=== PATIENT | male | born 1990 ===

== ENCOUNTER 2018-08-17 17:10 | Inpatient (IN) | payer SELFPAY ==
--- NOTE | 2018-08-17 17:24 | EDPHY ---
General Time Seen by Provider: 08/17/18 17:23 Narrative: CLINICAL IMPRESSION: Psychosis ASSESSMENT/PLAN: Patient is a 28-year-old male with a significant history of recent admission to [facility] after being found to be delusional, who presents after being placed on an M1 hold by police. Patient is afebrile and nontoxic-appearing, he is in no acute distress. Physical examination is unremarkable. CBC revealed no evidence of leukocytosis or anemia. His vital signs were reviewed and no findings to suggest bacterial illness. Metabolic panel with no metabolic abnormalities or acute kidney injury. Alcohol negative. Drug screen negative. There were no clinical findings to suggest intoxication, organic etiology, metabolic abnormality or other toxidrome. The patient was formally evaluated by behavioral health in the emergency department. He became very agitated while in the emergency department and required Zyprexa, Ativan and Haldol. On repeat examination he is much more calm. After formal evaluation, the patient was accepted to [address] [place] [address] Hunter for psychosis. The patient remained hemodynamically stable while in the emergency department and prior to transfer to [address] [place] [address]. DIFFERENTIAL DX: Psychosis including but not limited to chronic psychosis, medication noncompliance, medication side effect, depression and illicit drug use. ED COURSE: 1834: Discussed case with mental health Dayana. She had a long conversation with patient's brother whom is in [employer]. Per brother patient is very reliable, no history of drug use. He did have a recent episode where he was delusional under the impression that people were following him and ended up in [place] having no idea how he got there. He was admitted to [facility] at that time with improvement of his behavior and delusions after being placed on Risperdal. He has been without medications for a week and half. Family history of schizophrenia. 1914: Patient agitated, Ativan and Zyprexa ordered. Awaiting placement. CHIEF COMPLAINT: M1 hold by police HPI: Patient is a 28-year-old male with unknown psychiatric history who presents to the emergency department after detain by police and sent here on an M1 hold. Patient is very evasive in answering questions, when asked about his medical history he states "it is long" and will not elaborate. Patient denies any physical complaints at this time. He reports that he was allegedly arrested for not paying a bus fare prior to arrival. Patient ultimately discloses a recent admission to [facility] and states "I am not going back". He endorses that he was admitted there because he was "acting crazy". He states that he was placed on risperidone, has not continue it since his discharge from [facility]. He denies any suicidal ideation, homicidal ideation or history of suicide attempts in the past. PMH: Unknown psychiatric Family History: Noncontributory Social History: Denies any illicit drug use REVIEW OF SYSTEMS: All other systems negative Constitutional: No fever, no chills, appetite change. Eyes: No discharge, vision change ENT: No sore throat, congestion, ear pain. Cardiovascular: No chest pain, no palpitations. Respiratory: No cough, no shortness of breath. Gastrointestinal: No abdominal pain, no vomiting, diarrhea. Genitourinary: No hematuria, dysuria, flank pain, pelvic pain Musculoskeletal: No back pain, joint swelling, joint pain, myalgias. Skin: No rashes, color change. Neurological: No headache, dizziness, weakness. PHYSICAL EXAM: General Appearance: Laying in bed with his back to nh, refuses to turn over. He is well-developed, HENT: Normocephalic, atraumatic. Bilateral external ears are normal. Nares are clear, mucosa is pink. Oropharynx is clear, uvula is midline. Eyes: PERRLA, EOMI intact. Conjunctiva pink, no pallor or injection. Neck: Supple, nontender, no lymphadenopathy, no midline pain, FROM, no meningismus. Respiratory: There are no retractions, lungs are clear to auscultation. Cardiac: Regular rate and rhythm, no murmurs or gallops. Gastrointestinal: Abdomen is soft, nontender, bowel sounds normal, no masses/ hernia, no rigidity, guarding or focal peritoneal findings. Neurological: Alert and oriented x 3, CN 2-12 grossly intact, normal gait no ataxia, DTR's intact, normal sensation and strength Skin: Warm, dry, no rashes, no nodules on palpation. Musculoskeletal: Extremities are symmetrical, full range of motion, no tenderness, deformity, swelling, or erythema. Psychiatric: Patient is oriented X 3, there is no agitation. He is very labile , does not want to make any eye contact. MEDICAL DECISION MAKING: Patient was seen independently. Secondary supervising physician at time of evaluation was Dr. Ram. Diagnosis: Abnormal behavior. New, requires workup Summary: See Assessment and Plan for summary of ED visit Clinical lab tests: ordered / reviewed. Independent visualization of images, tracing, or specimens: No. Decision to obtain medical records or history from someone other than the patient: Yes, please report Review / Summarize previous medical records: None available Discussed patient with another provider: Yes, Dr. Ram Patient Progress: Stable, transfer to [address] [place] [address]. - Objective Vital Signs: Initial Vital Signs Temperature (C) 36.7 C 08/17/18 17:10 Heart Rate 60 08/17/18 17:10 Respiratory Rate 16 08/17/18 17:10 Blood Pressure 156/99 H 08/17/18 17:10 O2 Sat (%) 97 08/17/18 17:10 O2 Delivery Mode Room Air Allergies/Adverse Reactions: No Known Allergies Allergy (Unverified 08/17/18 17:48) Home Medications: Medication Instructions Recorded NK [No Known Home Meds] 08/17/18 Laboratory Results: Laboratory Results 08/17/18 17:24 08/17/18 17:24 08/17/18 08/17/18 08/17/18 17:24 17:24 17:24 WBC 8.13 10^3/uL 10^3/uL (3.80-9.50) RBC 5.46 10^6/uL 10^6/uL (4.40-6.38) Hgb 15.6 g/dL g/dL (13.7-17.5) Hct 47.2 % % (40.0-51.0) MCV 86.4 fL fL (81.5-99.8) MCH 28.6 pg pg (27.9-34.1) MCHC 33.1 g/dL g/dL (32.4-36.7) RDW 13.4 % % (11.5-15.2) Plt Count 270 10^3/uL 10^3/uL (150-400) MPV 11.1 fL fL (8.7-11.7) Neut % (Auto) 61.5 % % (39.3-74.2) Lymph % (Auto) 28.9 % % (15.0-45.0) Roosevelt % (Auto) 7.1 % % (4.5-13.0) Eos % (Auto) 1.2 % % (0.6-7.6) Baso % (Auto) 1.1 % % (0.3-1.7) Nucleat RBC Rel Count 0.0 % % (0.0-0.2) Absolute Neuts (auto) 4.99 10^3/uL 10^3/uL (1.70-6.50) Absolute Lymphs (auto) 2.35 10^3/uL 10^3/uL (1.00-3.00) Absolute Monos (auto) 0.58 10^3/uL 10^3/uL (0.30-0.80) Absolute Eos (auto) 0.10 10^3/uL 10^3/uL (0.03-0.40) Absolute Basos (auto) 0.09 10^3/uL 10^3/uL (0.02-0.10) Absolute Nucleated RBC 0.00 10^3/uL 10^3/uL (0-0.01) Immature Gran % 0.2 % % (0.0-1.1) Immature Gran # 0.02 10^3/uL 10^3/uL (0.00-0.10) Sodium 141 mEq/L mEq/L (135-145) Potassium 4.4 mEq/L mEq/L (3.5-5.2) Chloride 107 mEq/L mEq/L (97-110) Carbon Dioxide 23 mEq/l mEq/l (22-31) Anion Gap 11 mEq/L mEq/L (6-14) BUN 25 mg/dL H mg/dL (7-23) Creatinine 1.1 mg/dL mg/dL (0.7-1.3) Estimated GFR > 60 Glucose 96 mg/dL mg/dL (70-100) Calcium 9.6 mg/dL mg/dL (8.5-10.4) Urine Opiates Screen NEGATIVE (NEGATIVE) Urine Barbiturates NEGATIVE (NEGATIVE) Ur Phencyclidine Scrn NEGATIVE (NEGATIVE) Ur Amphetamine Screen NEGATIVE (NEGATIVE) U Benzodiazepines Scrn NEGATIVE (NEGATIVE) Urine Cocaine Screen NEGATIVE (NEGATIVE) U Marijuana (THC) Screen NEGATIVE (NEGATIVE) Ethyl Alcohol < 10 mg/dL mg/dL (0-10) Medications Given: Discontinued Medications Haloperidol Lactate (Haldol Injection) 10 mg IM EDNOW ONE Stop: 08/17/18 20:24 Last Admin: 08/17/18 20:38 Dose: 10 mg Lorazepam (Ativan) 2 mg PO EDNOW ONE Stop: 08/17/18 19:15 Last Admin: 08/17/18 19:20 Dose: 2 mg Olanzapine (Zyprexa Zydis) 10 mg PO EDNOW ONE Stop: 08/17/18 19:15 Last Admin: 08/17/18 19:20 Dose: 10 mg Departure - Departure Disposition: [facility] IP Clinical Impression: Psychosis Qualifiers: Psychosis type: unspecified psychosis type Qualified Code(s): F29 - Unspecified psychosis not due to a substance or known physiological condition Referrals: NONE *PRIMARY CARE P,. [Primary Care Provider] - As per Instructions
[2018-08-17 17:51] LABS: PLATELET COUNT 270 10^3/uL (150-400)
[2018-08-17] MEDS ORDERED: OLANZapine DISINTEGR 10 MG TAB PO ONE (19:14)
[2018-08-17] MEDS ORDERED: LORazepam 1 MG TAB PO ONE (19:14)
[2018-08-17] MEDS ORDERED: HALOPERIDOL LACT 5 MG/ML INJ IM ONE (20:23)
--- NOTE | 2018-08-17 20:38 | ASMTTCLDSP ---
TLC Discharge Disposition Disposition: Answers: Admit Disposition Notes: Notes: In consultation with [facility] ED physician, Leonides Ram MD and on-call psychiatrist, Jose Hunter MD, both concurred that pt appears to meet 27-65 criteria requiring psychiatric hospitalization as pt appears to be at risk of harm to self/others/gravely disabled due to a mental illness condition. Pt was read the Patient Rights and Responsibilities Statement on 08/17/18 original placed on chart, and was given photocopy of Rights. Pt refused to sign rights. Pt was given the prohibited belongings list while in the ED. Discharge Concerns/Recommendations: Notes: Pt admitted to [facility] at [facility] Was patient given the Answers: Yes Inpatient [facility] Prohibited Belongings List while in the ED? For inpatient Jose Hunter admission, the following psychiatrist agreed to accept patient for admission to [facility] ([facility]): Type of Hold: Answers: M1/72-hour Hold Hold initiated by: Answers: Other Notes: [facility] Clinician Date Signed: 08/17/2018 08:37 PM Electronically Signed By:Dayana Franco
--- NOTE | 2018-08-17 20:50 | PDCONSULT ---
Patient Services Coordinator Note: MEDICINE CONSULT H&P Chief Complaint: brought in under M1 hold by police History of Present Illness: 28yo M with recent inpatient stay at [facility] for delusional behavior is brought in under M1 hold by police. It is unclear to this conventional mortgage underwriter the events surrounding him being brought in. Per previous notes, he was recently at [facility] and started on risperidone. His delusions improved and he was discharge. He then reportedly stopped taking his risperidone. The mental health provider in the ED called the patient's brother who reports Drake is typically very reliable and does not use illicit substances. He did confirm the recent episode of delusions. He has apparently been out of his risperidone for over a week. In the ED, he was agitated and given ativan and zyprexa. Upon my evaluation, he is somnolent but easily arousable. He denies recent fevers, chills, dyspnea, cough, nausea, vomiting, diarrhea, urinary symptoms, rashes. Past Medical History: negative other than noted above Past Surgical History: denies Medications: none Allergies: none Social History: Reports living with his father. Denies alcohol, tobacco, illicits. Family History: + for schizophrenia ROS: A 10 point review of systems was negative other than noted in HPI. Vitals: Reviewed. Mildly hypertensive on arrival. Afebrile with normal heart rate. Physical Exam: Gen - no acute distress; HEENT - anicteric sclera, moist mucous membranes; Neck - no adenopathy; CV - rrr without m/r/g; Lungs - clear without wheezes; Abd - soft and nontender; Skin - no rashes or e/o IVDU; MSK - no edema in legs; Neuro - no focal deficits; Psych - calm Labs: Reviewed. Normal CBC and BMP. Negative Utox and alcohol level. Studies/Imaging: None. Assessment/Plan: 28yo M with recent inpatient psychiatric admission for delusions who is brought in under M1 hold for unclear reasons. #Decompensated psychiatric illness: M1 hold and being admitted to inpatient psychiatry. I suspect he has schizophrenia based on his prior presentation/ delusional thinking and family history. #Elevated BP: Suspect situational. Would not actively treat. Monitor in future. There are no other acute medical issues which would preclude him from inpatient psychiatry admission. Thank you for this consult. Please page the hospitalist service if any questions arise.
--- NOTE | 2018-08-17 20:57 | ASMTTLCEVL ---
[facility] Evaluation - Basic Information Evaluation Start Date and 08/17/2018 06:00 PM Time Hospital Status Answers: M1 Hold 72-hr M1 Hold Start Date 08/17/2018 05:00 PM and Time Patient statement Notes: "Im not going back to a Mental Health facility. I dont care what they say. When pt. was asked about last hospitalization pt did say his father had wanted him to go to the hospital before since he was acting crazy. Narrative Notes: Pt is a 28 year old male with unknown psychiatric history who presented to the [facility] ED on a M1 hold after [facility]. Per ED report: Pt was evasive in answering questions, when asked about his history he stated, it is long and will not elaborate. Pt denied any physical complaints at time of Physician evaluation. Pt had reported to ED staff he was arrested for not paying a bus fare prior to arrival. Pt ultimately discloses a recent admission to [facility] and states I am not going back. Pt had reported he was admitted to because he was acting crazy. Pt was placed on Risperidone, has not continued with his medications once he was discharged from . Pt denied any SI or HI or past hx of suicide attempts. Pt presented as alert and orientated, with no agitation. Pt presented as labile avoiding eye contact. Pt denied any illicit drug use. Pt was placed on a M1 hold by clinician at the [facility]. Per M1 hold pt refused to answer any questions regarding suicidality/homicidally. Information by clinician was provided by family suggest dx of psychotic disorder. Currently unmediated. Presenting as disorganized and passively agitated. Prior hospitalization about 1 month ago. Per initial evaluation report from [facility]. attempted to interview at the request of booking deputies. Mr. Peres was quiet and passively uncooperative refusing to answer basic questions about past mental health hx and diagnosis. He refused to answer questions regarding suicidality, homicidally, medical hx, family/social hx and plans for release. Per Mr Montero family: About 1 year ago strange behaviors began appearing. They reported delusions around members of his sikhism following him around. His focus of last has been delusions around the government following him around. He had a prior hospitalization about 1 month ago. He was placed on a M1 hold after an arrest for a non-violent offense. At this time he began taking an unknown psychotropic medication and his symptoms improved. About a week ago he stopped taking the medications and the psychotic/delusional symptoms reappeared. Mr. Peres presented with rigid posture with very poor eye-contact. When he did choose to make eye-contact he had an intense stare. He was very distrustful of this interviewer and refused to give any answers of substance. His mood was passively agitated and his affect was flat. His judgment and insight appeared compromised; he seemed to have very little awareness around his mental health status and the impact his mental health issues are having on his ability to function. TLC spoke with brother. Pt did not answer questions other than initially saying hum or nah but would not elaborate. Pt did however state I dont want to go anywhere. On occasion pt would respond answering I dont care. Majority of history was obtained from pt.s brother, Roberto Wilder [phone]. Brother reported in early Jul. is when he started experiencing significant mental health concerns noted by extreme paranoia. Brother reported in early Jul. he ended up in [place], [place] arrested for a misdemeanor and released but sent to a local hospital for a MH evaluation and ending up at [facility] for inpt MH treatment as pt. was exhibiting extreme paranoia, feeling people from the sikhism and the government were following him. Brother reported pt has no hx of substance abuse. 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 Pts social life was focused on the sikhism and per brother pt. had a harder time with developing relationships with others because of his strict beliefs and intolerance of others behaviors. Brother also reported there has been tension at home with fathers due to pt.s behaviors. Diagnosis History Notes: Prior psychotic episode resulting in an inpt. admission on Jul. Prior suicide attempts Notes: No prior report of any suicide attempts. Prior hospitalizations Notes: Prior hospitalization in Jul. Treatment Responses Notes: Pt unable to report. Per brother pt. did well while he was on meds post [facility] Hospitalization in Jul. History of violence Notes: No hx of violence reported either as a victim or harm to others. Therapist: None Psychiatrist: No current Psychiatrist. Pt only followed up for one appointment after his hospital stay. Medications (name, dosage, route, freq uency) Notes: Pt stopped taking his recommended medications about 1.5 weeks ago. Per brother pt. had been doing well when he was taking his medications. Allergies/Reaction Notes: No known allergies. Sleep Notes: Brother reported pt has been staying up a lot at night and not sleeping either during the day. Pt refused to report on sleeping pattern. Appetite Notes: Pt unable to report. Medical/Surgical history Notes: Pt unable to report. Substance use history (frequency, intensity, his tory, duration) Notes: Brother stated pt has no known history of substance use or drinking since he was 20 and changed his life after finding God. Family composition Notes: Pt is the middle child, with an older and younger brother. His parents when pt. was about 13 years old. Pts father remarried a few years ago. Need for family Answers: Yes participation in patient's care Family psychiatric/substance abuse history Notes: It was reported by brother that pt.s paternal Grandfather at one time was diagnosed with schizophrenia. Developmental history Notes: Pts parents when he was 13 years old. He and his 2 siblings lived with their mother after the divorce. Pts biological father however remained involved. There was no reported hx of abuse provided. There also per brother was no reported hx of a childhood dx such as ADD or ADHD. No hx of concussions, head injuries or LOC was reported. Abuse concerns Answers: None Marital status/children Notes: Pt is single, never with no children. Living situation Notes: Pt has been living with his father and fathers . Sexual history/orientation Notes: Pt is not in a relationship. Peer support/family strengths Notes: Brother stated pt. does not appear to have any close relationships because of his behavioral expectations of others. Education level/history Notes: Pt graduated from high school. Brother indicated pt. did not apply himself academically in school but did finish high school as an average student. 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 Due to his behavior related to his mental illness brother indicated he lost his job in Jul and the sikhism has asked pt. not return to the building unless he is accompanied by a family member. Notes: No involvement. Legal Notes: Pt was arrested for a misdemeanor in [place], [place] in Jul resulting in a MH evaluation. Pt was also arrested earlier today for failing to pay a bus fare. Jew/Spiritual Notes: Pt was a member and worked as a portfolio lead at a [employer]. Brother reported pt. lead a very strict moral life since he found God at age 20. 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 Brother also reported pt. likes playing basketball, reading the bible and playing the guitar. Collateral Notes: Collateral inform. was obtained from pt.'s brother included in assessment above. Patient's strengths Answers: Artistic/Creative/Musical (Please select at least TWO strengths): Athletic Supportive/Compassionate TLC Evaluation - Mental Status Exam Appearance: Answers: Appropriate Eye Contact: Answers: Absent Avoiding Mood: Answers: Labile Affect: Answers: Anxious Fearful Guarded Nervous Suspicious Behavior: Answers: Uncooperative Fearful Guarded Suspicious Speech: Answers: Coherent Soft Thought Process: Answers: Disorganized Distracted Paranoid Insight: Answers: Poor Judgement: Answers: Poor Manic Signs/Symptoms Answers: Distractibility Impulsivity Depression Answers: Diminished Interest Signs/Symptoms: Sad Mood Withdrawn Anxiety Signs/Symptoms Answers: Generalized Anxiety Delusions: Answers: Paranoid Ideation Jew/Spiritual Current Stage of Change Answers: Precontemplation Pt reported to have Answers: No suicidal/self-injuring ideation/behavior? Pt reported to be making Answers: No suicidal/self-injuring threats? Pt reported to have Answers: No aggression/assault ideation/behavior? Pt reported to be making Answers: No aggression/assault threats? Pt exhibits inability to Answers: Yes care for self/grave disability? Ideation has Answers: Yes delusional/hallucinatory content? History of Answers: No suicidal/self-injuring ideation, behavior, or threats? History of Answers: No aggressive/assaultive ideation, behavior, or threats? History of serious Answers: No physical harm to self/others while in treatment setting? TLC Evaluation - Suicide/Homicide Risk Suicide Risk Factors: Answers: Agitation Anxiety/Panic, Severe Global Insomnia Impulsivity Psychotic Disorder None Current Suicidal Answers: No Ideation? Current Suicidal Ideation Answers: No in the Past 48 Hours? Current Suicidal Ideation Answers: No in the Past Month? Suicide Internal Answers: Other Notes: Pt denied SI Protective Factors: Suicide External Answers: Other Protective Factors: None TLC Evaluation - Wrap-up BDI Total Score: Pt refused BSS Total Score: Pt refused AXIS I Diagnosis (include DSM-V and ICD-10 codes), must also be entered in [employer], which is the source of truth. Notes: Unspecified Schizophrenia Spectrum and Other Psychotic Disorder 298.9 (F29) In consultation with [facility] ED physician, Leonides Ram MD and on-call psychiatrist, Jose Hunter MD, both concurred that pt appears to meet 27-65 criteria requiring psychiatric hospitalization as pt appears to be at risk of harm to self/others/gravely disabled due to a mental illness condition. Pt was read the Patient Rights and Responsibilities Statement on 08/17/18 original placed on chart, and was given photocopy of Rights. Pt refused to sign rights. Pt was given the 3N prohibited belongings list while in the ED. Evaluation End Date and 08/17/2018 08:50 PM Time (HH:MM): Date Signed: 08/17/2018 08:57 PM Electronically Signed By:Dayana Franco
[2018-08-17] MEDS ORDERED: NICOTINE POLACRILEX 2 MG GUM B PRN (23:03)
[2018-08-17] MEDS ORDERED: LORazepam 0.5 MG TAB PO PRN (23:03)
[2018-08-17] MEDS ORDERED: MAG HYDROX/AL HYDROX/SIMETH 30 ML UDCUP PO PRN (23:03)
[2018-08-17] MEDS ORDERED: OLANZapine DISINTEGR 10 MG TAB PO PRN (23:03)
[2018-08-17] MEDS ORDERED: MAGNESIUM HYDROXIDE 30 ML UDCUP PO PRN (23:03)
[2018-08-17] MEDS ORDERED: ACETAMINOPHEN 325 MG TAB PO PRN (23:03)
[2018-08-17] MEDS ORDERED: LORazepam 1 MG TAB PO PRN (23:05)
--- NOTE | 2018-08-18 15:59 | ASMTCMCOM ---
CM Note CM Note Notes: CC unable to meet with pt. due to pt. sleeping throughout the day. Staff report pt. sleeping over 16 hours today, eating lunch, and having no medications to take. CC will meet with pt tomorrow morning to complete MTP and request pt. sign [employer] form to assist with gaining insurance. Date Signed: 08/18/2018 03:59 PM Electronically Signed By:Patience Rosenthal
--- NOTE | 2018-08-18 16:30 | PDMN ---
Medical Necessity Medical necessity: Pt meets inpt criteria per MD order and [facility] B-014, Schizophrenia Spectrum Disorders, Adult: Inpatient Care, 6 days. 28 y/o presented to ED on M1 hold, admitted w/unspecified schizophrenia spectrum and other psychotic disorder, requires psychiatric hospitalization as pt appears to be at risk of harm to self/others/gravely disabled due to mental illness.
--- NOTE | 2018-08-18 18:07 | BAPA ---
[f rep st] ADMISSION PSYCHIATRIC ASSESSMENT DATE OF SERVICE: 08/18/2018 CHIEF COMPLAINT: "I am not going back to a mental health facility, I don't care what they say." HISTORY OF PRESENT ILLNESS: Patient is a 28-year-old unmarried, man who presented to the [facility] ED on an M1 hold after he was released from shelter. According to the mental health evaluation from the shelter, patient was riding a bus in [place] and refused to pay his fare. [facility] was contacted. He was taken to shelter. At the [facility], he was evaluated by a sr. social media & mobile manager who complete d his M1 hold, which states "Mr. Peres refused to answer any questions regarding suicidality/homic idality. Collateral information obtained from family suggested diagnosis of psychotic disorder, curr ently unmedicated, presenting as disorganized and passively agitated. One prior mental health hospit alization about 1 month ago." Collateral information that was obtained from family members, and while patient was in the emergency department, indicates that about 1 year ago the patient started exhibiting strange behaviors. Family members report delusions about members of his samaritan following him around. Patient was also focused on the government monitoring him. Patient admitted in the emergency department that he had been adm itted to [facility] about 1 month ago. While he was at [facility], he was taking Risperd al. However, after he was discharged from the hospital, patient stopped taking his medications and h is paranoid delusions reappeared. The [facility] carbonator in the ED, spoke with the patient's brother, Kaiser kaur Roberto states that the patient has been extremely paranoid. He says in early July, the debo leon went to [place], [place] and was arrested for a misdemeanor, but then was released and sent to a local emergency room where he was transferred to inpatient at [facility] for mental health t reatment. While patient was in the ED, he was very guarded, refused to answer most questions, very poor eye con tact. When he was told that he was going to be admitted to a psychiatric facility. Patient became e xtremely agitated. He required IM Haldol. Since the patient has been admitted to the inpatient [facility] unit on , he has been very sedated. He has slept most of the day. He woke up o nly briefly to eat lunch and then went back to sleep. When this MD tried to talk to the patient, he was very difficult to arouse. He could not stay awake and kept falling back asleep. He has not rece ived any further medications since his admission. PAST PSYCHIATRIC HISTORY: The patient provided little collateral information about his psychiatric h istory. Most of the information that this MD has is a result of information provided by the patient' s brother, Roberto Peres, during his interview with the [facility] carbonator. Brother states that the pa marvin has had only 1 prior psychiatric hospitalization that was at [facility] in July. He was there for less than a week. Brother reports that the patient was taking Risperdal, but d oes not know the dose. Brother states that once patient was discharged from the hospital, he stopped taking his medication. He did have 1 followup appointment with an outpatient psychiatrist, but brot her does not know where that was or who the psychiatrist was. Brother states that he has had no othe r contact with mental health providers. Brother states that he is not aware of any psychotic episode s prior to a year ago, when the patient started becoming increasingly paranoid and having bizarre tho ughts about the government and samaritan members following him around. Mother states that the patient b ecame very judaism around the age of 20 or 21 years old. According to the brother, the patient "fo und God" and became heavily involved in a local [employer]. 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 In July, the samaritan told him he lost his job and his fernando zaldivar asked the patient not to return to the building unless he was accompanied by a family member. There were no details about what led to the patient losing his job. The patient has no prior suicide attempts and has never taken medication before being at [facility]. ALLERGIES: Patient has no known drug allergies. CURRENT MEDICATIONS: The patient is not currently taking any medications. The last time he had any meds was when he was inpatient at [facility] in July of 2018. LABORATORY DATA: White cell count was 8.13, hemoglobin 15.6, hematocrit 47.2, platelet count 270. S odium 141, potassium 4.4, chloride 107, BUN 25, creatinine 1.1, glucose 96, calcium 9.6. Urine drug screen was negative for all drugs of abuse. PAST MEDICAL HISTORY: Patient does not report any chronic medical conditions. No prior surgeries. SOCIAL HISTORY: Brother states that the patient's parents were when the patient was 13 year s old. He has 2 siblings. They lived with their mother after the divorce. The patient is currently living with his father and his father's new . The patient graduated from high school, has no fu rther education after high school. 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 The brother states the patient lost his job in July because of his mental illness. Brother states that the patient's social life centered on his samaritan. 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 FAMILY HISTORY: There is no reported family history of mental illness or substance use. SUBSTANCE USE HISTORY: Patient denies using any drugs of abuse. Brother states that the patient is very judaism and does not believe in using drugs or alcohol. As far as the brother knows, the salo ent has never had a problem with drugs or with alcohol. TRAUMA HISTORY: The brother denies that the patient has ever experienced any emotional, physical, or sexual abuse. LEGAL HISTORY: The patient was picked up by [employer] [employer] for refusing to pay a bus fare. He was relea sed from shelter on a mental health hold. There is no report of any other legal issues. The patient is lying in bed sleeping. He is wearing a hospital gown and scrub bottoms. He is very difficult to ar ouse. He is sedated and sluggish. He does not make any eye contact and his speech rate is slow, vol ume is low. He mostly mumbles. His intellectual function, based upon the brother's report, his fund of knowledge and educational history would indicate that he has average or slightly below average in tellectual function. Since arriving on the unit, he has denied feeling sad, helpless, hopeless, wort hless, and anxious. He has denied any auditory or visual hallucinations. He denies feeling paranoid . No ideas of reference or bizarre thoughts, although he did present with symptoms of paranoid delus ions and erratic and agitated behavior. He has not exhibited any unsafe or aggressive behaviors whil e on the inpatient unit. He does not show any signs or symptoms of olga. He does not have racing t houghts, pressured speech, grandiose delusions, or elevated and elated mood. His thought process, ba sed upon his evaluation in the emergency department, was disorganized, guarded, and defensive. His i nsight and judgment are both impaired as evidenced by the fact that he stopped taking his psychiatric medications, did not adhere to his followup plan. IMPRESSION: 1. Psychotic disorder, unspecified. 2. Schizophrenia, paranoid type by history. Brother reports this was the patient's diagnosis when clemente escoto was at [facility] last month. 3. Lack of social support, nonadherence to treatment, noncompliance with medications, lost his job i n July of 2018. PLAN: 1. Admit patient to the inpatient behavioral health services unit on [address] [place] [address] on an M1 hold. 2. Monitor closely for safety. The patient is currently not exhibiting any signs of unsafe behavior . He is acting appropriately, although he was agitated and combative in the ED and was administered IM medications for agitation. The patient has not exhibited any signs of aggressive behavior here on the inpatient unit. 3. Continue to monitor and observe the patient. He does seem much calmer, and less agitated since r eceiving p.o. Zyprexa, Ativan, and IM Haldol in the emergency department. He has not received any nm dications since he has been on [address] [place] [address]. He has been asleep. 4. The patient did take risperidone while he was at [facility], but his brother does not know the dose he was on. Brother says that the patient was more stable and less paranoid after t aking the medication. MD will order Risperdal M tab 0.5 mg p.o. at bedtime. MD has also requested m edical records from [facility]. So far, all the information that we have has been pro vided by the patient's brother, Roberto. 5. Estimated length of stay is 3 to 5 days. The patient has been living with his father and with hi s father's new . It is unclear whether or not the patient will be able to return to their house. transitions rn care coordinator has attempted to contact the family in order to start working on the patient's dis position and his aftercare plan. It is unclear whether or not the patient has been enrolled for [facility] Medicaid, but this would open up opportunities for him to be seen at [facility] or a similar community mental health center where he could get more comprehensive services. /[id number]/MODL
[2018-08-18] MEDS: RISPERIDONE ODT 0.5 MG TAB SL SCH (20:27)
--- NOTE | 2018-08-19 07:35 | ASMTBHMTP ---
Master Treatment Plan Master Treatment Plan Answers: Mood Instability with for: Psychosis Date: 08/17/2018 Diagnosis on Admission: Unspecified Schizophrenia Spectrum and Other Psychotic Disorder 298.9 (F29) Expected length of stay: 3-5 days Reason for admission: Notes: Per Report: Pt is a 28 year old male with unknown psychiatric history who presented to the [facility] ED on a M1 hold after pt was released from [facility]. Per ED report: Pt was evasive in answering questions, when asked about his history he stated, it is long and will not elaborate. Pt denied any physical complaints at time of Physician evaluation. Pt had reported to ED staff he was arrested for not paying a bus fare prior to arrival. Pt ultimately discloses a recent admission to [facility] and states I am not going back. Pt had reported he was admitted to because he was acting crazy. Pt was placed on Risperidone, has not continued with his medications once he was discharged from . Pt denied any SI or HI or past hx of suicide attempts. Pt presented as alert and orientated, with no agitation. Pt presented as labile avoiding eye contact. Pt denied any illicit drug use. Pt was placed on a M1 hold by clinician at the [facility]. Per M1 hold pt refused to answer any questions regarding suicidality/homicidally. Information by clinician was provided by family suggest dx of psychotic disorder. Currently unmediated. Presenting as disorganized and passively agitated. Prior hospitalization about 1 month ago. Per initial evaluation report from intermediate. attempted to interview at the request of booking deputies. Mr. Peres was quiet and passively uncooperative refusing to answer basic questions about past mental health hx and diagnosis. He refused to answer questions regarding suicidality, homicidally, medical hx, family/social hx and plans for release. Per Mr Montero family: About 1 year ago strange behaviors began appearing. They reported delusions around members of his zoroastrianism following him around. His focus of last has been delusions around the government following him around. He had a prior hospitalization about 1 month ago. He was placed on a M1 hold after an arrest for a non-violent offense. At this time he began taking an unknown psychotropic medication and his symptoms improved. About a week ago he stopped taking the medications and the psychotic/delusional symptoms reappeared. Mr. Peres presented with rigid posture with very poor eye-contact. When he did choose to make eye-contact he had an intense stare. He was very distrustful of this interviewer and refused to give any answers of substance. His mood was passively agitated and his affect was flat. His judgment and insight appeared compromised; he seemed to have very little awareness around his mental health status and the impact his mental health issues are having on his ability to function. TLC spoke with brother. Pt did not answer questions other than initially saying hum or nah but would not elaborate. Pt did however state I dont want to go anywhere. On occasion pt would respond answering I dont care. Majority of history was obtained from pt.s brother, Roberto Wilder [phone]. Brother reported in early Jul. is when he started experiencing significant mental health concerns noted by extreme paranoia. Brother reported in early Jul. he ended up in [place], [place] arrested for a misdemeanor and released but sent to a local hospital for a MH evaluation and ending up at [facility] for inpt MH treatment as pt. was exhibiting extreme paranoia, feeling people from the zoroastrianism and the government were following him. Brother reported pt has no hx of substance abuse. 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 Pts social life was focused on the zoroastrianism and per brother pt. had a harder time with developing relationships with others because of his strict beliefs and intolerance of others behaviors. Brother also reported there has been tension at home with fathers due to pt.s behaviors. Patient's stated presenting problems: Notes: " I got arrested by [employer] went to [facility] and then they brought me here." Patient's goals for treatment: Notes: "to get out" Patient's strengths: Notes: None Identify supports outside of hospital: Notes: Family and Friends Discharge criteria: Notes: Patient will demonstrate a stable mood by discharge.* Initial disposition plan/considerations: Notes: Return home to my father house in [place]. Master Treatment Plan Required Signatures Psychiatrist signature: Answers: Psychiatrist: RN on-shift signature: Answers: RN: Patient signature: Answers: Patient: Date Signed: 08/19/2018 07:34 AM Electronically Signed By:Jerson Mauricio
--- NOTE | 2018-08-19 08:24 | SOAPPROG ---
SOAP Progress Note Assessment/Plan: Assessment: Unspecified Psychosis. No improvement noted, currently refusing medications ( see subjective/objective note). Patient is not safe to discharge at this time as patient continues to exhibit signs of psychosis, and express psychosis symptoms. Patient requires continued inpatient care because of current psychosis, and requires inpatient level of care to stabilize to no longer be gravely disabled due to mental illness. Patient could benefit from continued inpatient hospitalization for crisis stabilization, safety, and medication evaluation. Plan: 1. Psychotropic medications: After reviewing options, risks, and benefits patient agrees to continue current medications. No other medication changes at this time as more time is needed to determine ongoing tolerability and efficacy. Plan is to continue to observe patient for response and side effects from medications, and ongoing monitoring and evaluation. 2. Review with patient informed consent and recommendations for psychotropic medication treatment listed below 3. Labs: A1c, lipid panel, liver function 4. Therapy: continue milieu and group therapy 5. Further investigation including gathering information from patients relatives and review of past case records to inform treatment plan. 6. Safety/Wellness plan and follow-up outpatient appointments to be established prior to discharge. Next steps are for patient to meet with animal care supervisor to plan a safe discharge plan and establish outpatient services for ongoing treatment. 7. Confer with inpatient treatment team regarding treatment plan. 8. Psychosocial stressors addressed through case resolution specialist 9. Legal status: M1 10. Consider discharge this week if patient is in stable condition, safe, and has a safe discharge plan. PSYCHOTROPIC MEDICATION TREATMENT INFORMED CONSENT and RECOMMENDATIONS: Review nature of condition, diagnosis, and prognosis. Review nature and purpose of psychotropic medication treatment. Review type of psychotropic medications being ordered. Review risk and benefits of psychotropic medication treatment. Review probable length of time patient will need to take medications. Review risk and benefits of not undergoing psychotropic medication treatment. Review alternative treatments to psychotropic medications. Review psychotropic medications contraindications, drug-drug interactions, side effects, and importance of reporting any side effects to a psychiatric provider or nurse during inpatient hospitalization, and upon discharge to patients psychiatric outpatient provider, primary care provider, or other health date night caregiver. Review importance of asking a nurse, psychiatric provider, or primary care provider any questions or problems concerning the psychotropic medications. Verify patient understands the information that has been provided, and understands, accepts, and agrees to psychotropic medications. Review patients safety plan and importance of patient to report to staff while hospitalized if patient is ever a danger to self/others, or unable to care for self, and upon discharge, the importance for patient to contact [facility] or [facility], or go to the nearest emergency room, if patient is ever a danger to self/others, or unable to care for self. Recommend that upon discharge patient establish medication management treatment with a psychiatric provider, establishes routine therapy appointments, and follow-up with primary care provider. Verify patient understands and agrees to these recommendations. 08/19/18 08:25 Subjective: Following up with patient for evaluation of psychosis and safety. Patient reports, "I am doing fine, and don't need to be here. Was arrested, and I am not going back to a mental health facility. I am here because I didn't have the right change to ride the bus. I am not going to take medications and I am not going to go to groups." Patient expresses the following psychiatric symptoms none. Patient reports he plans to return to his parents home in [place], [place] after discharge. Objective: Vital Signs Temp Pulse Resp BP Pulse Ox 36.6 C 63 16 117/68 97 08/19/18 06:00 08/19/18 06:00 08/19/18 06:00 08/19/18 06:00 08/19/18 06:00 08/18/18 08/19/18 08/20/18 05:59 05:59 05:59 Intake Total 1000 Balance 1000 NURSING REPORT: Consulted with nursing for update on patients progress in treatment. Nurses report patient is not engaged in treatment, is not attending groups, slept 8 hours, expresses the following psychiatric symptoms: anxiety, exhibits the following psychiatric symptoms: anxious; is eating all meals, is not agreeable to medications, and denies SI/HI, denies AH, denies VH, and denies delusions. MD REPORT FROM WEEKEND: admit d/t psychotic episode; admitted to [facility] 07/2018. Stopped Risperdal at DC and no f/u. Patient received IM Haldol in ED on Sat, started Risperdal 0.5 mg HS on Sun. Patient slept most of the day on Sunday. MSE: The patient is a well-nourished male looking stated chronological age. Attire is appropriate dress is casual. Grooming status is appropriate. Ambulation is independent. Gait is normal and coordinated. Posture is normal. Eye contact is appropriate. Motor activity is appropriate with purposeful, organized, coordinated movements; with no involuntary movements. Attitude is cooperative; appears paranoid and suspicious. Patient appears attentive and relates well to this interviewer. Language production is spontaneous. Rate is hesitant. Latency of response is prolonged. Articulation is clear. Patient reports mood as okay with flat, constricted, and inappropriate affect. Patients thought process is fairly linear and logical. Patient does not report suicidal/homicidal thoughts, ideas, or plans. Patient denies auditory, visual hallucinations. Patient denies delusions. Patient does not appear to be attending to internal stimuli. Patients attention and concentration are poor. Patient is oriented to person, place, and time. Patients insight is poor. Patients judgment is poor. - Time Spent With Patient Time Spent With Patient: 15 minutes, met with patient individually. - Pending Discharge Pending Discharge Within 24 Hours: No Pending Discharge Within 48 Hours: No ICD10 Worksheet Patient Problems: Problems Problem Status Onset Psychosis Acute
[2018-08-19] MEDS: RISPERIDONE ODT 0.5 MG TAB SL SCH (20:21)
--- NOTE | 2018-08-20 10:58 | SOAPPROG ---
SOAP Progress Note Assessment/Plan: Assessment: Unspecified Psychosis. R/O Schizophrenia. R/O Schizoaffective Disorder, Bipolar Type. No improvement noted; patient has refused medications since admission; patient reports now agreeable to medications (see subjective/ objective note). Patient is not safe to discharge at this time as patient continues to exhibit signs of psychosis, and express psychosis symptoms. Patient requires continued inpatient care because of current psychosis, and requires inpatient level of care to stabilize to no longer be gravely disabled due to mental illness. Patient could benefit from continued inpatient hospitalization for crisis stabilization, safety, and medication evaluation. Plan: 1. Psychotropic medications: After reviewing options, risks, and benefits patient agrees to being trial of Risperdal M-tab 1 mg po QHS. No other medication changes at this time as more time is needed to determine ongoing tolerability and efficacy. Plan is to continue to observe patient for response and side effects from medications, and ongoing monitoring and evaluation. 2. Review with patient informed consent and recommendations for psychotropic medication treatment listed below 3. Labs: no additional labs at this time 4. Therapy: continue milieu and group therapy 5. Further investigation including gathering information from patients relatives and review of past case records to inform treatment plan. 6. Safety/Wellness plan and follow-up outpatient appointments to be established prior to discharge. Next steps are for patient to meet with adult care provider to plan a safe discharge plan and establish outpatient services for ongoing treatment. 7. Confer with inpatient treatment team regarding treatment plan. 8. Psychosocial stressors addressed through correctional case records supervisor 9. Legal status: M1 to be placed on [facility] 10. Consider discharge this week if patient is in stable condition, safe, and has a safe discharge plan. PSYCHOTROPIC MEDICATION TREATMENT INFORMED CONSENT and RECOMMENDATIONS: Review nature of condition, diagnosis, and prognosis. Review nature and purpose of psychotropic medication treatment. Review type of psychotropic medications being ordered. Review risk and benefits of psychotropic medication treatment. Review probable length of time patient will need to take medications. Review risk and benefits of not undergoing psychotropic medication treatment. Review alternative treatments to psychotropic medications. Review psychotropic medications contraindications, drug-drug interactions, side effects, and importance of reporting any side effects to a psychiatric provider or nurse during inpatient hospitalization, and upon discharge to patients psychiatric outpatient provider, primary care provider, or other health patient care provider. Review importance of asking a nurse, psychiatric provider, or primary care provider any questions or problems concerning the psychotropic medications. Verify patient understands the information that has been provided, and understands, accepts, and agrees to psychotropic medications. Review patients safety plan and importance of patient to report to staff while hospitalized if patient is ever a danger to self/others, or unable to care for self, and upon discharge, the importance for patient to contact [facility] or [facility], or go to the nearest emergency room, if patient is ever a danger to self/others, or unable to care for self. Recommend that upon discharge patient establish medication management treatment with a psychiatric provider, establishes routine therapy appointments, and follow-up with primary care provider. Verify patient understands and agrees to these recommendations. 08/20/18 10:58 Subjective: Following up with patient for evaluation of psychosis and safety. Patient reports, "I am doing okay, just want to leave here." Patient expresses the following psychiatric symptoms anxious and irritable. Patient agrees to begin trial of Risperdal M-tab 1 mg QHS. Patient denies AH, expresses no sxs of psychosis. Patient reports he plans to return to his parents home in [place], [place] after discharge. Objective: Vital Signs Temp Pulse Resp BP Pulse Ox 36.7 C 65 14 180/79 H 98 08/20/18 06:00 08/20/18 06:00 08/20/18 06:00 08/20/18 06:00 08/20/18 06:00 NURSING REPORT: Consulted with nursing for update on patients progress in treatment. Nurses report patient is not engaged in treatment, is not attending groups, slept 3 hours, expresses the following psychiatric symptoms: anxiety, exhibits the following psychiatric symptoms: anxious, irritable, up most the night, hyperactive, doing push-ups, and speaking to his reflection in glass; withdrawn from social interactions; is eating all meals, is agreeable to medications, and denies SI/HI, denies AH, denies VH, and denies delusions. MD REPORT FROM WEEKEND: admit d/t psychotic episode; admitted to [facility] 07/2018. Stopped Risperdal at DC and no f/u. Patient received IM Haldol in ED on Sat, started Risperdal 0.5 mg HS on Sun. Patient slept most of the day on Sunday. MSE: The patient is a well-nourished male looking stated chronological age. Attire is appropriate dress is casual. Grooming status is appropriate. Ambulation is independent. Gait is normal and coordinated. Posture is normal. Eye contact is inappropriate and staring. Motor activity is appropriate with purposeful, organized, coordinated movements; with no involuntary movements. Attitude is cooperative; appears paranoid and suspicious. Patient appears attentive and relates well to this interviewer. Language production is spontaneous. Rate is hesitant. Latency of response is prolonged. Articulation is clear. Patient reports mood as okay with flat, constricted, and inappropriate affect. Patients thought process is fairly linear and logical. Patient does not report suicidal/homicidal thoughts, ideas, or plans. Patient denies auditory, visual hallucinations. Patient denies delusions. Patient does not appear to be attending to internal stimuli. Patients attention and concentration are poor. Patient is oriented to person, place, and time. Patients insight is poor. Patients judgment is poor. - Time Spent With Patient Time Spent With Patient: 15 minutes, met with patient individually. - Pending Discharge Pending Discharge Within 24 Hours: No Pending Discharge Within 48 Hours: No ICD10 Worksheet Patient Problems: Problems Problem Status Onset Psychosis Acute
[2018-08-20] MEDS ORDERED: LORazepam 1 MG TAB PO PRN (11:01)
[2018-08-20] MEDS ORDERED: RISPERIDONE ODT 0.5 MG TAB SL SCH (11:02)
--- NOTE | 2018-08-20 13:30 | ASMTCMCOM ---
CM Note CM Note Notes: Client is unwilling to sign POOL for [facility] for any follow up care. Additionally, CC had client sign ppw for Medicaid and submitted it to [employer], etc. Client appears paranoid at times, mostly isolating to his room while on the unit. Date Signed: 08/20/2018 01:29 PM Electronically Signed By:Jerson Mauricio
--- NOTE | 2018-08-21 06:20 | SOAPPROG ---
SOAP Progress Note Assessment/Plan: Assessment: Unspecified Psychosis. R/O Schizophrenia. R/O Schizoaffective Disorder, Bipolar Type. Slight improvement noted; patient agreeable to medications (see subjective/objective note). Patient is not safe to discharge at this time as patient continues to exhibit signs of psychosis, and express psychosis symptoms. Patient requires continued inpatient care because of current psychosis, and requires inpatient level of care to stabilize to no longer be gravely disabled due to mental illness. Patient could benefit from continued inpatient hospitalization for crisis stabilization, safety, and medication evaluation. Plan: 1. Psychotropic medications: After reviewing options, risks, and benefits patient agrees to Risperdal M-tab 2 mg po QHS. No other medication changes at this time as more time is needed to determine ongoing tolerability and efficacy. Plan is to continue to observe patient for response and side effects from medications, and ongoing monitoring and evaluation. 2. Review with patient informed consent and recommendations for psychotropic medication treatment listed below 3. Labs: no additional labs at this time 4. Therapy: continue milieu and group therapy 5. Further investigation including gathering information from patients relatives and review of past case records to inform treatment plan. 6. Safety/Wellness plan and follow-up outpatient appointments to be established prior to discharge. Next steps are for patient to meet with adult care provider to plan a safe discharge plan and establish outpatient services for ongoing treatment. 7. Confer with inpatient treatment team regarding treatment plan. 8. Psychosocial stressors addressed through case packer and sealer 9. Legal status: [facility] 10. Consider discharge this week if patient is in stable condition, safe, and has a safe discharge plan. PSYCHOTROPIC MEDICATION TREATMENT INFORMED CONSENT and RECOMMENDATIONS: Review nature of condition, diagnosis, and prognosis. Review nature and purpose of psychotropic medication treatment. Review type of psychotropic medications being ordered. Review risk and benefits of psychotropic medication treatment. Review probable length of time patient will need to take medications. Review risk and benefits of not undergoing psychotropic medication treatment. Review alternative treatments to psychotropic medications. Review psychotropic medications contraindications, drug-drug interactions, side effects, and importance of reporting any side effects to a psychiatric provider or nurse during inpatient hospitalization, and upon discharge to patients psychiatric outpatient provider, primary care provider, or other health caregivers non medical. Review importance of asking a nurse, psychiatric provider, or primary care provider any questions or problems concerning the psychotropic medications. Verify patient understands the information that has been provided, and understands, accepts, and agrees to psychotropic medications. Review patients safety plan and importance of patient to report to staff while hospitalized if patient is ever a danger to self/others, or unable to care for self, and upon discharge, the importance for patient to contact [facility] or [facility], or go to the nearest emergency room, if patient is ever a danger to self/others, or unable to care for self. Recommend that upon discharge patient establish medication management treatment with a psychiatric provider, establishes routine therapy appointments, and follow-up with primary care provider. Verify patient understands and agrees to these recommendations. 08/21/18 06:21 Subjective: Following up with patient for evaluation of psychosis and safety. Patient reports, "I am doing better, took the medication last night." Patient expresses the following psychiatric symptoms mild anxiety. Patient agrees to increase Risperdal M-tab to 2 mg QHS. Patient agrees to continue medications after discharge. Objective: Vital Signs Temp Pulse Resp BP Pulse Ox 36.6 C 65 14 115/55 L 99 08/21/18 05:51 08/21/18 05:51 08/21/18 05:51 08/21/18 05:51 08/21/18 05:51 NURSING REPORT: Consulted with nursing for update on patients progress in treatment. Nurses report patient is not engaged in treatment, is not attending groups, slept 6.5 hours, expresses the following psychiatric symptoms: anxiety, exhibits the following psychiatric symptoms: anxious, withdrawn from social interactions; is eating all meals, is agreeable to medications, and denies SI/HI , denies AH, denies VH, and denies delusions. MSE: The patient is a well-nourished male looking stated chronological age. Attire is appropriate dress is casual. Grooming status is appropriate. Ambulation is independent. Gait is normal and coordinated. Posture is normal. Eye contact is inappropriate and staring. Motor activity is appropriate with purposeful, organized, coordinated movements; with no involuntary movements. Attitude is cooperative; appears paranoid and suspicious. Patient appears attentive and relates well to this interviewer. Language production is spontaneous. Rate is hesitant. Latency of response is prolonged. Articulation is clear. Patient reports mood as okay with flat, constricted, and inappropriate affect. Patients thought process is fairly linear and logical. Patient does not report suicidal/homicidal thoughts, ideas, or plans. Patient denies auditory, visual hallucinations. Patient denies delusions. Patient does not appear to be attending to internal stimuli. Patients attention and concentration are fair. Patient is oriented to person, place, and time. Patients insight is poor. Patients judgment is poor. - Time Spent With Patient Time Spent With Patient: 15 minutes, met with patient individually. - Pending Discharge Pending Discharge Within 24 Hours: No Pending Discharge Within 48 Hours: No ICD10 Worksheet Patient Problems: Problems Problem Status Onset Psychosis Acute
--- NOTE | 2018-08-21 13:04 | ASMTBHDC ---
Notes Note: Notes: CC was unable to finalize any follow up appts for this client due to his refusal to sign any POOL's, etc. Follow up with: [facility] [address] [place] [id number] This is for the initial 30 minute appt to do paperwork and Ct should bring ID, insurance card, etc. [place] office: [address] [place] [address] Mon, Wed, and Fri 8:30am-2pm. [place] office: [address] [facility], 2nd floor, [place] [address] Mon. and Wed., 9 am-2 pm [place] office: [address] [facility], 2nd floor (adults), [place] [address] Mon-Fri., 9 am-[address] [place] [address] Must go through coordinated entry, with [facility], prior to arriving at the [facility] [address] [place] [address] Please note client refused to allow CC to make any follow up appts. Date Signed: 08/21/2018 01:03 PM Electronically Signed By:Jerson Mauricio
[2018-08-21] MEDS: RISPERIDONE ODT 0.5 MG TAB SL SCH (20:29)
--- NOTE | 2018-08-22 06:17 | SOAPPROG ---
SOAP Progress Note Assessment/Plan: Assessment: Unspecified Psychosis. R/O Schizophrenia. R/O Schizoaffective Disorder, Bipolar Type. Improvement noted (see subjective/objective note). Patient could benefit from continued inpatient hospitalization for crisis stabilization , safety, and medication evaluation. Consider discharge tomorrow. Plan: 1. Psychotropic medications: After reviewing options, risks, and benefits patient agrees to continue current medications. No medication changes at this time as more time is needed to determine ongoing tolerability and efficacy. Plan is to continue to observe patient for response and side effects from medications, and ongoing monitoring and evaluation. 2. Review with patient informed consent and recommendations for psychotropic medication treatment listed below 3. Labs: no additional labs at this time 4. Therapy: continue milieu and group therapy 5. Further investigation including gathering information from patients relatives and review of past case records to inform treatment plan. 6. Safety/Wellness plan and follow-up outpatient appointments to be established prior to discharge. Next steps are for patient to meet with direct care specialist to plan a safe discharge plan and establish outpatient services for ongoing treatment. 7. Confer with inpatient treatment team regarding treatment plan. 8. Psychosocial stressors addressed through spring encaser 9. Legal status: [facility] 10. Consider discharge this week if patient is in stable condition, safe, and has a safe discharge plan. PSYCHOTROPIC MEDICATION TREATMENT INFORMED CONSENT and RECOMMENDATIONS: Review nature of condition, diagnosis, and prognosis. Review nature and purpose of psychotropic medication treatment. Review type of psychotropic medications being ordered. Review risk and benefits of psychotropic medication treatment. Review probable length of time patient will need to take medications. Review risk and benefits of not undergoing psychotropic medication treatment. Review alternative treatments to psychotropic medications. Review psychotropic medications contraindications, drug-drug interactions, side effects, and importance of reporting any side effects to a psychiatric provider or nurse during inpatient hospitalization, and upon discharge to patients psychiatric outpatient provider, primary care provider, or other health pharmacy customer care specialist. Review importance of asking a nurse, psychiatric provider, or primary care provider any questions or problems concerning the psychotropic medications. Verify patient understands the information that has been provided, and understands, accepts, and agrees to psychotropic medications. Review patients safety plan and importance of patient to report to staff while hospitalized if patient is ever a danger to self/others, or unable to care for self, and upon discharge, the importance for patient to contact [facility] or [facility], or go to the nearest emergency room, if patient is ever a danger to self/others, or unable to care for self. Recommend that upon discharge patient establish medication management treatment with a psychiatric provider, establishes routine therapy appointments, and follow-up with primary care provider. Verify patient understands and agrees to these recommendations. 08/22/18 06:16 Subjective: Following up with patient for evaluation of psychosis and safety. Patient reports, "Doing good." Patient expresses the following psychiatric symptoms mild anxiety. Patient reports no side effects from current medications, and agrees to continue medications. Patient reports plan to stay with his friend after discharge. Patient agrees to continue Risperidone 2 mg po QHS after discharge, and agrees to follow-up with outpatient provider for medication management. Objective: Vital Signs Temp Pulse Resp BP Pulse Ox 36.6 C 65 14 115/55 L 99 08/21/18 05:51 08/21/18 05:51 08/21/18 05:51 08/21/18 05:51 08/21/18 05:51 NURSING REPORT: Consulted with nursing for update on patients progress in treatment. Nurses report patient is engaged in treatment, slept 8 hours, expresses the following psychiatric symptoms: anxiety, exhibits the following psychiatric symptoms: mild anxiety; is eating all meals, is agreeable to medications, and denies SI/HI, denies AH, denies VH, and denies delusions. MSE: The patient is a well-nourished male looking stated chronological age. Attire is appropriate dress is casual. Grooming status is appropriate. Ambulation is independent. Gait is normal and coordinated. Posture is normal. Eye contact is appropriate. Motor activity is appropriate with purposeful, organized, coordinated movements; with no involuntary movements. Attitude is cooperative. Patient appears attentive and relates well to this interviewer. Language production is spontaneous. R/R/V normal. Articulation is clear. Patient reports mood as okay with congruent and appropriate affect. Patients thought process is linear and logical. Patient does not report suicidal/ homicidal thoughts, ideas, or plans. Patient denies auditory, visual hallucinations. Patient denies delusions. Patient does not appear to be attending to internal stimuli. Patients attention and concentration are fair. Patient is oriented to person, place, and time. Patients insight is fair. Patients judgment is fair. - Time Spent With Patient Time Spent With Patient: 15 minutes, met with patient individually. - Pending Discharge Pending Discharge Within 24 Hours: Yes Pending Discharge Within 48 Hours: No Pending Discharge Date: 08/23/18 Pending Discharge Time: 11:00 ICD10 Worksheet Patient Problems: Problems Problem Status Onset Psychosis Acute
--- NOTE | 2018-08-22 13:39 | ASMTCMCOM ---
CM Note CM Note Notes: Client is slated to D/C tomorrow. Client continues to resist signing follow up POOL's. CC provided the walk-in times and dates in his discharge summary. Client should have an active Medicaid policy etc. Client appears paranoid (at times), mostly isolating to his room while on the unit; however, is doing better than previous days. Date Signed: 08/22/2018 01:37 PM Electronically Signed By:Jerson Mauricio
[2018-08-22] MEDS: RISPERIDONE ODT 0.5 MG TAB SL SCH (20:55)
[2018-08-23 06:56] VITALS: BP 117/67
--- NOTE | 2018-08-23 10:42 | BDS ---
[f rep st] BEHAVIORAL HEALTH DISCHARGE SUMMARY REASON FOR ADMISSION: From the ED note dated 08/17/2018, the patient presented to the emergency department after being found to be delusional. The patient presented on an M1 hold by police. The patient became very agitated while in the emergency department. The patient was admitted involuntarily on an M1 hold due to being gravely disabled due to a mental illness. The patient was admitted for safety, crisis stabilization, and medication evaluation. ADMITTING DIAGNOSES: 1. Unspecified psychosis. 2. Rule out schizophrenia. 3. Rule out schizoaffective disorder. 4. Rule out delusional disorder. ADMISSION PHYSICAL EXAM: The patient was seen for history and physical consultation on 08/17/2018 for medical clearance for inpatient psychiatric hospitalization and treatment. The patient was medically cleared for inpatient psychiatric hospitalization and treatment. For further details, please refer to principal consultant note document dated 08/17/2018. ADMISSION LABS: 1. CBC within normal limits. 2. BMP within normal limits except BUN was elevated at 25. 3. Hemoglobin A1c within normal limits at 5.5. 4. Liver function within normal limits except total protein was elevated at 8.6 , albumin was elevated at 5.1. 5. Lipid panel within normal limits except LDL cholesterol calculated was elevated at 106. 6. Toxicology screen negative for all substances that were screened and negative for ethyl alcohol. MAJOR PROCEDURES OR TESTS: None. HOSPITAL COURSE: The most prominent symptoms and behaviors while the patient was here were withdrawn from social interactions. The patient appeared paranoid and suspicious. The patient was observed attending to internal stimuli in the milieu. Treatment modalities utilized were milieu and group therapy. Risperidone was started and titrated to 2 mg p.o. at bedtime to target psychosis symptoms, was tolerated with no report of side effects and with good response. Patient has improved considerably with no signs of psychiatric symptoms and no psychiatric symptoms expressed. Patient reports he has improved since admission, states to be in stable condition, feels safe to discharge, and he contracts for safety. Patients response to treatment was good. There were no adverse or unexpected results of treatment. The patient was safe throughout stay, active in treatment, engaged in groups, and was appropriate with staff. Patient met with treatment team prior to discharge to assess readiness to discharge and review discharge plan. The treatment team consensus is the patient in stable condition, has a safe discharge plan, and is ready to discharge today. CONDITION AT DISCHARGE: Patient is in stable condition and is no longer a danger to self or others, and is not gravely disabled due to mental illness. Patient is no longer in need of inpatient level of care, and can be safely and effectively treated within the community. The patients level of risk at time of discharge is low. MSE: The patient is casually dressed and with good hygiene , and looks stated age. Patient is sitting, posture is upright, and position is relaxed. Patient appears awake, alert, and responds appropriately and reasonably during interview. Patient is engaged, relates well to interviewer, and emotional facial expression is appropriate to situation and changes appropriately with topic. Patient is cooperative, makes comfortable eye contact , and movements are voluntary, deliberate, coordinated, and smooth and even with no inappropriate movements. Patient makes laryngeal sounds effortlessly and shares conversation appropriately; pace of conversation is appropriate, and stream of talking is fluent; articulation is clear and understandable; word choice is effortless and appropriate for education level; completes sentences, occasionally pausing to think; rate and volume are appropriate for interview and setting. Patient reports mood as euthymic. Patients affect is stable with full variable range, congruent with mood, and appropriate to speech and circumstances. Patient has linear and logical thinking, with no loose associations, tangential thought, thought blocking, concrete thinking, or any other signs of formal thought disorder. Patient denies suicidal and homicidal ideation, and denies hallucinations and delusions. Patient appears to be a reliable historian with sound judgement and good insight into current condition. Patient has no apparent dysfunction in recent or remote memory noted , and no evidence of gross cognitive dysfunction noted at any point during the interview. DISCHARGE DIAGNOSIS: 1. Unspecified psychosis. 2. Rule out schizophrenia. 3. Rule out schizoaffective disorder. 4. Rule out delusional disorder. CURRENT MEDICATIONS: After reviewing options, risks, and benefits with the patient, the patient agrees to continue risperidone 2 mg p.o. at bedtime. The patient requests a prescription for this medication at time of discharge. Prescription for 30 days is provided. The prescription is reviewed with the patient at time of discharge to ensure accuracy and patient understanding. DISPOSITION: The patient left hospital independently and voluntarily with his friend and plans to stay with his friend after discharge. FOLLOWUP: fashion coordinator reports the appropriate outpatient follow-up services have been established and outpatient appointments have been scheduled. The patient received written instructions with times and dates of outpatient follow-up appointments. The following follow-up recommendations were provided to the patient at discharge: Continue psychotropic medications as prescribed and attend appointments as scheduled. Report any side effects to a psychiatric outpatient provider, a primary care provider, or other health animal care worker. Address any questions or problems concerning the psychotropic medications with a psychiatric outpatient provider, a primary care provider, or other health animal care worker. Contact [facility] or [facility], or go to the nearest emergency room, if you are ever a danger to yourself/others, or unable to care for yourself. As soon as possible, establish a routine medication management treatment with a psychiatric provider, establish routine therapy appointments, and follow-up with a primary care provider. LEGAL COURSE: The patient was admitted on an M1 hold for involuntary inpatient psychiatric hospitalization. The patient was placed on a short-term certification during the course of his hospitalization. The patient discharged today independently and voluntarily. ATTITUDE AT TIME OF DISCHARGE: The patients attitude was positive at time of discharge, and patient reports looking forward to discharging today. The patient reports he feels safe to discharge, is no longer a danger to himself or others, is in stable condition, and contracts for safety. Patient states he will continue medications as prescribed, and establish medication management treatment with an outpatient provider after discharge. Patient reports he understands the information that has been provided to him, and he understands, accepts, and agrees to psychotropic medications. Patient describes internal protective factors as the coping skills he has learned while hospitalized here, and he plans to continue to practice these coping skills after discharge. LABS AND STUDIES: There were no pending labs or studies at time. ADVANCE DIRECTIVES: There were no advance directives on file, and patient was full code during this hospitalization. The following psychotropic medication treatment informed consent and recommendations were provided to the patient at time of discharge. Patient reports he understands, accepts, and agrees to the information that has been provided. PSYCHOTROPIC MEDICATION TREATMENT INFORMED CONSENT and RECOMMENDATIONS: Review nature of condition, diagnosis, and prognosis. Review nature and purpose of psychotropic medication treatment. Review type of psychotropic medications being prescribed. Review risk and benefits of psychotropic medication treatment. Review probable length of time will need to take medications. Review risk and benefits of not undergoing psychotropic medication treatment. Review alternative treatments to psychotropic medications. Review psychotropic medications contraindications, side effects, and importance of reporting any side effects to a psychiatric provider, primary care provider, or other health animal care worker. Review importance of asking a psychiatric provider or primary care provider any questions or problems concerning the psychotropic medications. Review safety plan and the importance to contact [facility] or [facility] , or go to the nearest emergency room, if ever a danger to yourself/others, or unable to care for yourself. Recommend upon discharge to establish routine medication management treatment with a psychiatric provider, establish routine therapy appointments, and follow-up with a primary care provider. Verify patient understands, accepts, and agrees to the information that has been provided. /[id number]/MODL MTDD
--- NOTE | 2018-08-23 13:55 | ASMTBHDC ---
Notes Note: Notes: Pt. reports "doing great". Pt. stated he slept "well". Pt. reports getting enough to eat and attending "all" groups. Pt. reports no issues with his current medications. Pt. requested medication coupon for his medication. Pt. reports no issues while on the unit. Pt. stated he is "ready for discharge". Pt. stated his friend can pick him up. Pt. reports being able to get to his follow up appointment. Pt. reports he can fill and take his medications as prescribed. Pt. denied SI, HI, AVH and paranoia. Pt. presents as alert, calm, polite, good eye contact, groomed, and cooperative. Staff report pt. sleeping 8.5 hours and being medication compliant. Pt.'s follow up: [facility] [address] [place] [address] Intake Appointment - SundayAugust 26 (08/26/18) @ 8:30 at the [facility] Date Signed: 08/23/2018 01:55 PM Electronically Signed By:Patience Rosenthal
== END 2018-08-23 14:31 | disposition home or self-care (01) | DRG 885 ==
LOC: BBEH 21:45
PROVIDERS: ADMIT Psychiatry & Neurology Psychiatry; ATTEND Psychiatry & Neurology Psychiatry
DX: F29 Unspecified psychosis not due to a substance or known physiological condition (principal); F20.0 Paranoid schizophrenia
CPT/HCPCS: 80305; G0480; J1630